=== PATIENT | male | born 1960 | race Caucasian/White ===

== ENCOUNTER 2018-04-09 08:50 | Day surgery (SDC) | payer OTHER ==
[2018-04-09] MEDS ORDERED: MIDAZOLAM 1 MG/ML 2 ML INJ ×2 (10:58)
[2018-04-09] MEDS ORDERED: FENTAnyl 50 MCG/ML VIAL (10:58)
== END 2018-04-09 18:20 | disposition home or self-care (01) ==
LOC: GIL 08:50
DX: Z12.11 Encounter for screening for malignant neoplasm of colon (principal); D12.7 Benign neoplasm of rectosigmoid junction; K64.4 Residual hemorrhoidal skin tags
CPT/HCPCS: 45380; 88305